=== PATIENT | female | born 1980 | race American Indian/Alaskan Native ===

== ENCOUNTER 2017-05-30 11:05 | Emergency (ER) | payer BC ==
[2017-05-30 11:52] LABS: Basophils % (Auto) 0.5 % (0.0-1.8); Eosinophils % (Auto) 0.2 % (0.0-4.3); Hematocrit 37.9 % (30.3-42.9); Mean Corpuscular HGB Conc 32 % (30-34); Mean Corpuscular Volume 75 fl (79-97); Platelet Count 284 K/mm3 (140-440); Red Blood Count 5.09 M/mm3 (3.65-5.03); Red Cell Distribution Width 13.1 % (13.2-15.2); White Blood Count 7.4 K/mm3 (4.5-11.0)
[2017-05-30 11:57] LABS: Mean Corpuscular Hemoglobin 24 pg (28-32)
[2017-05-30 12:03] LABS: Anion Gap 20 mmol/L; BUN/Creatinine Ratio 18.33; Blood Urea Nitrogen 11 mg/dL (7-17); Calcium 9.7 mg/dL (8.4-10.2); Carbon Dioxide 21 mmol/L (22-30); Chloride 104.5 mmol/L (98-107); Glucose 102 mg/dL (65-100); Sodium 141 mmol/L (137-145)
[2017-05-30 14:43] LABS: Bilirubin,Urine NEG (Negative); Blood,Urine SM (Negative); Ketones,Urine 80 mg/dL (Negative); Leukocyte Esterase,Urine NEG (Negative); Mucus,Urine 3+ /HPF; Nitrite,Urine NEG (Negative); Urobilinogen,Urine < 2.0 mg/dL (<2.0)
[2017-05-30] MEDS ORDERED: CATAPRES PO ONE (17:23)
[2017-05-30] MEDS ORDERED: ATIVAN PO ONE (17:23)
[2017-05-30 18:22] VITALS: BP 134/86
--- NOTE | 2017-05-30 18:36 | Emergency Department Report ---
HPI - General Chief Complaint: High BP Time Seen by Provider: 05/30/17 16:42 - HPI HPI: The patient is a 36-year-old female presents for evaluation of lightheadedness and elevated blood pressure. The patient has history of hypertension. The patient states that since this a.m., greater than 4 hours prior to my evaluation , she has experienced moderate in severity lightheadedness, exacerbated with standing and ambulation, and improved with supine position and rest. She says that she has experienced lightheadedness and headache in the past with episodes of elevated blood pressure, and that her symptoms today probably her to check her blood pressure. She found her blood pressure to be elevated while at work and was instructed to present to the emergency department by her [employer]blers supervisor. She shares that she has been very stressed out secondary to issues at her job and at home. She reports compliance with antihypertensive medication regimen. The patient denies fever, headache, neck pain, paresthesias, focal motor weakness, blurry vision, ear pain, tinnitus, chest pain, hemoptysis, dyspnea, abdominal pain, flank pain, decreased urination, or syncope. She also denies hopelessness, suicidal ideation, homicidal ideation, or hallucinations. ED Past Medical Hx - Past Medical History Previous Medical History?: Yes Hx Hypertension: Yes - Surgical History Past Surgical History?: Yes Additional Surgical History: x 2 - Social History Smoking Status: Never Smoker Substance Use Type: Alcohol, Prescribed - Medications Home Medications: Home Medications Medication Instructions Recorded Confirmed Last Taken Type Hydrochlorothiazide [HCTZ] 25 mg PO QDAY #30 tablet 05/30/17 Unknown Rx LORazepam [Ativan] 1 mg PO Q8HR PRN #10 tab 05/30/17 Unknown Rx Lisinopril [Zestril TAB] 20 mg PO QDAY 05/30/17 05/30/17 Unknown History amLODIPine [Norvasc] 5 mg PO DAILY 05/30/17 05/30/17 Unknown History ED Review of Systems ROS: Stated complaint: HIGH BLOOD PRESSURE Other details as noted in HPI Constitutional: reports lightheadedness denies: fever ENT: denies: throat or neck pain Respiratory: denies: cough, shortness of breath Cardiovascular: denies: chest pain Endocrine: denies unexplained weight loss or gain Gastrointestinal: denies: abdominal pain, nausea Genitourinary: denies: dysuria Musculoskeletal: denies: leg swelling Skin: denies: rash Neurological: denies: headache Hematological/Lymphatic: denies: easy bleeding or easy bruising Psych: denies sadness or hopelessness Physical Exam - Physical Exam Vital Signs: Vital Signs 05/30/17 05/30/17 05/30/17 11:15 16:12 16:14 Temperature 98.7 F 98.5 F Pulse Rate 142 H 112 H Respiratory 18 18 18 Rate Blood Pressure 172/100 Blood Pressure 179/109 [Right] O2 Sat by Pulse 100 100 100 Oximetry 05/30/17 05/30/17 17:30 18:21 Temperature Pulse Rate 112 H 89 Respiratory Rate Blood Pressure 179/109 Blood Pressure 134/86 [Right] O2 Sat by Pulse Oximetry Physical Exam: General: well-nourished, well-developed, no acute distress Head: Normocephalic, atraumatic Eyes: normal sclera, no horizontal or vertical nystagmus ENT: Mucous membranes are pale and dry, normal tympanic membranes bilaterally Neck: No neck stiffness, no cervical adenopathy Respiratory: Breath sounds equal bilaterally, no wheezing, rales, or rhonchi Cardio: S1 and S2 present, no murmurs, rubs, gallops, capillary refill is delayed Abdomen: Normoactive bowel sounds, soft abdomen, no rigidity, no guarding or rebound tenderness Musc: No pitting edema Skin: No rash Neuro: alert oriented x4, normal cognition, speech normal, PERRL, EOM intact, no facial drooping, no uvula or tongue deviation on protrusion, no deficit with rotation of neck or shoulder shrug, no obvious gross motor deficit in the upper or lower extremities with flexion or extension at the shoulder, elbow, wrist, hip, knee, or ankle bilaterally, no obvious gross sensation deficit to crude touch or 2 pt discrimination, 2+ symmetric reflexes on DTR testing, no coordination deficit with [id number] or [id number] testing, romberg negative, patient able to to ambulate without abnormal gait Psych: Normal affect ED Course Vital Signs 05/30/17 05/30/17 05/30/17 11:15 16:12 16:14 Temperature 98.7 F 98.5 F Pulse Rate 142 H 112 H Respiratory 18 18 18 Rate Blood Pressure 172/100 Blood Pressure 179/109 [Right] O2 Sat by Pulse 100 100 100 Oximetry 05/30/17 05/30/17 17:30 18:21 Temperature Pulse Rate 112 H 89 Respiratory Rate Blood Pressure 179/109 Blood Pressure 134/86 [Right] O2 Sat by Pulse Oximetry ED Medical Decision Making - Lab Data Result diagrams: 05/30/17 11:24 05/30/17 11:24 - Medical Decision Making The patient was seen and examined by myself. The patient is placed on a hall monitor and continuous pulse ox. On initial evaluation, the patient was found to be in no distress. The patient is given by mouth clonidine for her elevated blood pressure and Ativan for anxiety. On reexamination the patient's blood pressure was found to decrease outside of range concerning for hypertensive emergency. The patient is stable for discharge with outpatient follow-up. The patient is given follow-up and return instructions. The patient expressed understanding and agreed with the plan. The patient is discharged in stable condition. Critical care attestation.: If time is entered above; I have spent that time in minutes in the direct care of this critically ill patient, excluding procedure time. ED Disposition Clinical Impression: Hypertensive urgency, Stress at work, Intermittent lightheadedness Disposition: DC-01 TO HOME OR SELFCARE Is pt being admited?: No Does the pt Need Aspirin: No Condition: Stable Instructions: Hypertension (ED), Stress (ED) Additional Instructions: Do not take more than the prescribed dose of ativan, or combine or take the anxiety medicine prescribed to you today with sedating pain medicine, sleeping medicines, other anxiety meds, sedatives, or with alcohol, as doing so may cause central nervous system sedation and respiratory depression, and potentially cause you to stop breathing and . Additionally, do not drive a vehicle, operate heavy machinery, or engage in any activity that would cause harm to yourself or others after taking the pain medicine prescribed to you. Prescriptions: Hydrochlorothiazide [HCTZ] 25 mg PO QDAY #30 tablet LORazepam [Ativan] 1 mg PO Q8HR PRN #10 tab PRN Reason: Anxiety Referrals: URIEL WOODARD MD [Primary Care Provider] - 3-5 Days Time of Disposition: 18:31
== END 2017-05-30 18:54 | disposition home or self-care (01) ==
LOC: ED 11:05
DX: I10 Essential (primary) hypertension (principal); R42 Dizziness and giddiness; F43.9 Reaction to severe stress, unspecified
CPT/HCPCS: 36415; 80048; 81001; 84484; 85025; 93005; 93010